=== PATIENT | female | born 1950 | race Caucasian/White ===

== ENCOUNTER 2021-01-01 15:23 | Inpatient (IN) ==
[2021-01-01 19:47] LABS: Basophils # 0.1 10*3/uL (0.0-0.2); Basophils % 0.7 % (0.0-0.8); Eosinophils % 0.2 % (0.00-10.9); Hematocrit 35.5 VOL% (35.7-47.0); Hemoglobin 11.8 GM/DL (12.0-16.0); Immature Granulocytes % 0.5 %; Immature Granulocytes Absolute 0.04 #; Lymphocytes # 1.3 10*3/uL (1.4-4.0); Lymphocytes % 15.4 % (21.3-54.2); Mean Corpuscular HGB Conc 33.2 GM/DL (32-36); Mean Corpuscular Volume 87.9 FL (87-102); Mean Platelet Volume 11.9 FL (9.6-12.0); Monocytes % 3.2 % (1.7-12.7); Platelet Count 210 T/CUMM (130-400); Red Blood Count 4.04 MC/CUMM (3.8-5.5); Red Cell Distribution Width 15.4 % (9.3-17.3); White Blood Count 8.7 T/CUMM (4-12)
[2021-01-01 19:57] LABS: INR 1.1; PT Patient Result 12.6 SECS (10.5-12.0); Partial Thromboplastin Time 28.8 SECS (23.9-33.8)
[2021-01-01 20:09] LABS: Albumin 2.6 G/DL (3.4-5.0); Bilirubin,Total 1.3 MG/DL (0.2-1.0); Calcium 9.5 MG/DL (8.5-10.1); Osmolality,Calculated 265.4 MOS/KG (273-304); Total Protein 7.9 G/DL (6.4-8.2)
[2021-01-01 20:43] LABS: Bacteria,Urine Occasional /HPF (Few); Bilirubin,Urine Negative (Negative); Blood, Urine Negative (Negative); Glucose,Urine (UA) Negative (Negative); Ketones,Urine 20 mg/dL (Negative); Mucus,Urine Occasional /LPF (Occasional); Nitrite,Urine Negative (Negative); Protein,Urine 100 MG/DL; RBC,Urine 1 /HPF (0-4); Squamous Epithelial Cell,Urine Occasional /HPF (0-10); Urine Appearance CLEAR (Clear); Urine Color Amber (Yellow); Urine Specific Gravity 1.021 (1.001-1.035)
[2021-01-01] MEDS ORDERED: AZITHROMYCIN INJ 500 MG in SODIUM CHLORIDE 0.9% 250 ML IV ONE (22:42)
[2021-01-01] MEDS ORDERED: ONDANSETRON 4 MG/2 ML VIAL IV PRN (23:27)
[2021-01-01] MEDS ORDERED: DOCUSATE SODIUM 100 MG CAPSULE PO PRN (23:27)
[2021-01-01] MEDS ORDERED: GLUCAGON 1 MG VIAL IM PRN (23:27)
[2021-01-01] MEDS ORDERED: ACETAMINOPHEN 325 MG TABLET PO PRN (23:27)
[2021-01-01] MEDS ORDERED: DEXTROSE 50% 25 GM/50 ML VIAL IV PRN (23:27)
[2021-01-01] MEDS: ASCORBIC ACID 500 MG TABLET PO SCH (23:37)
[2021-01-01] MEDS: FAMOTIDINE 20 MG TABLET PO SCH (23:37)
[2021-01-01] MEDS ORDERED: LOPERAMIDE 2 MG CAPSULE PO PRN (23:47)
[2021-01-01] MEDS ORDERED: MAGNESIUM SULF RIDER 2 GM/50 ML PREMIX IV PRN (23:49)
[2021-01-01] MEDS ORDERED: MAGNESIUM SULF RIDER 4 GM/100 ML PREMIX IV PRN (23:49)
[2021-01-02 00:33] LABS: ABG Base Excess -3.6 MMOL/L (-2.5-2.5); ABG HCO3 21.4 MMOL/L (20-26); ABG Oxygen Saturation 95.6 % (95-100); ABG PCO2 27.3 MM HG (35-48); ABG PH 7.454 (7.35-7.45); ABG PO2 76.1 MM HG (80-95); Allen Test Positive
[2021-01-02 05:34] LABS: Basophils % 0.6 % (0.0-0.8); Eosinophils # 0.1 10*3/uL (0.0-0.87); Eosinophils % 1.2 % (0.00-10.9); Hematocrit 34.6 VOL% (35.7-47.0); Hemoglobin 11.6 GM/DL (12.0-16.0); Immature Granulocytes % 0.6 %; Immature Granulocytes Absolute 0.04 #; Lymphocytes # 1.1 10*3/uL (1.4-4.0); Lymphocytes % 15.7 % (21.3-54.2); Mean Corpuscular HGB Conc 33.5 GM/DL (32-36); Mean Corpuscular Volume 88.7 FL (87-102); Mean Platelet Volume 12.3 FL (9.6-12.0); Monocytes % 2.8 % (1.7-12.7); Neutrophils % 79.1 % (38.7-73.9); Red Cell Distribution Width 15.6 % (9.3-17.3); White Blood Count 6.7 T/CUMM (4-12)
[2021-01-02 05:36] LABS: Platelet Count 158 T/CUMM (130-400)
[2021-01-02 05:44] LABS: INR 1.1; PT Patient Result 12.3 SECS (10.5-12.0)
[2021-01-02 06:04] LABS: Ferritin 980.6 ng/ml (8-252)
[2021-01-02 06:10] LABS: Albumin 2.2 G/DL (3.4-5.0); Bilirubin,Total 1.1 MG/DL (0.2-1.0); Calcium 9.2 MG/DL (8.5-10.1); Osmolality,Calculated 265.4 MOS/KG (273-304); Potassium 3.1 MMOL/L (3.5-5.1); Total Protein 7.2 G/DL (6.4-8.2)
[2021-01-02 06:16] LABS: Anisocytosis 1+; Platelet Estimate Normal
[2021-01-02] MEDS: DEXAMETHASONE 4 MG/1 ML VIAL IV SCH (08:30)
[2021-01-02] MEDS: CHOLECALCIFEROL 1,000 UNIT TABLET PO SCH (08:42)
[2021-01-02] MEDS: ASCORBIC ACID 500 MG TABLET PO SCH ×2 (08:42→21:05)
[2021-01-02] MEDS: FAMOTIDINE 20 MG TABLET PO SCH ×2 (08:42→21:05)
[2021-01-02] MEDS: CETIRIZINE 10 MG TABLET PO SCH (08:43)
[2021-01-02] MEDS: ZINC GLUCONATE 50 MG TABLET PO SCH (08:43)
[2021-01-02] MEDS ORDERED: AZITHROMYCIN 250 MG TABLET PO SCH (09:00)
[2021-01-02] MEDS: POTASSIUM CHLORIDE 20 MEQ TABLET PO PRN ×4 (09:02→18:44)
[2021-01-02] MEDS ORDERED: REMDESIVIR 200 MG in SODIUM CHLORIDE 0.9% 210 ML IV ONE (10:00)
[2021-01-03 05:14] LABS: Basophils % 0.4 % (0.0-0.8); Hematocrit 39.1 VOL% (35.7-47.0); Hemoglobin 12.9 GM/DL (12.0-16.0); Immature Granulocytes % 0.6 %; Immature Granulocytes Absolute 0.03 #; Lymphocytes % 18.4 % (21.3-54.2); Mean Corpuscular Volume 89.3 FL (87-102); Mean Platelet Volume 12.3 FL (9.6-12.0); Monocytes % 3.9 % (1.7-12.7); Neutrophils % 76.7 % (38.7-73.9); Platelet Count 137 T/CUMM (130-400); Red Blood Count 4.38 MC/CUMM (3.8-5.5); Red Cell Distribution Width 15.6 % (9.3-17.3); White Blood Count 5.2 T/CUMM (4-12)
[2021-01-03 05:46] LABS: Osmolality,Calculated 282.5 MOS/KG (273-304); Potassium 4.6 MMOL/L (3.5-5.1)
[2021-01-03 05:54] LABS: Platelet Estimate Adequate
[2021-01-03 05:55] LABS: Anisocytosis Slight
[2021-01-03 06:00] LABS: Albumin 2.4 G/DL (3.4-5.0); Bilirubin,Total 0.7 MG/DL (0.2-1.0); Calcium 10.1 MG/DL (8.5-10.1); Osmolality,Calculated 282.5 MOS/KG (273-304); Potassium 4.6 MMOL/L (3.5-5.1); Total Protein 7.8 G/DL (6.4-8.2)
[2021-01-03] MEDS: DEXAMETHASONE 4 MG/1 ML VIAL IV SCH (08:05)
[2021-01-03] MEDS: FAMOTIDINE 20 MG TABLET PO SCH ×2 (08:08→20:13)
[2021-01-03] MEDS: ASCORBIC ACID 500 MG TABLET PO SCH ×2 (08:08→20:13)
[2021-01-03] MEDS: ZINC GLUCONATE 50 MG TABLET PO SCH (08:09)
[2021-01-03] MEDS: CHOLECALCIFEROL 1,000 UNIT TABLET PO SCH (08:09)
[2021-01-03] MEDS: CETIRIZINE 10 MG TABLET PO SCH (08:09)
[2021-01-03] MEDS: REMDESIVIR 100 MG in SODIUM CHLORIDE 0.9% 100 ML IV SCH (09:43)
[2021-01-04 05:07] LABS: Basophils % 0.3 % (0.0-0.8); Eosinophils % 0.1 % (0.00-10.9); Hematocrit 36.9 VOL% (35.7-47.0); Hemoglobin 12.5 GM/DL (12.0-16.0); Immature Granulocytes % 0.4 %; Immature Granulocytes Absolute 0.04 #; Lymphocytes # 1.1 10*3/uL (1.4-4.0); Mean Corpuscular HGB Conc 33.9 GM/DL (32-36); Mean Corpuscular Volume 86.8 FL (87-102); Mean Platelet Volume 12.2 FL (9.6-12.0); Monocytes % 4.9 % (1.7-12.7); Neutrophils % 82.3 % (38.7-73.9); Platelet Count 215 T/CUMM (130-400); Red Blood Count 4.25 MC/CUMM (3.8-5.5); Red Cell Distribution Width 15.3 % (9.3-17.3); White Blood Count 9.2 T/CUMM (4-12)
[2021-01-04 05:24] LABS: Calcium 9.9 MG/DL (8.5-10.1); Potassium 4.2 MMOL/L (3.5-5.1)
[2021-01-04 05:40] LABS: Lymphocytes 11 % (20-55); Platelet Estimate Normal; Segmented Neutrophils 86 % (50-85); Total Cells Counted 100
[2021-01-04] MEDS: ZINC GLUCONATE 50 MG TABLET PO SCH (08:17)
[2021-01-04] MEDS: FAMOTIDINE 20 MG TABLET PO SCH ×2 (08:18→20:35)
[2021-01-04] MEDS: CETIRIZINE 10 MG TABLET PO SCH (08:18)
[2021-01-04] MEDS: ASCORBIC ACID 500 MG TABLET PO SCH ×2 (08:18→20:35)
[2021-01-04] MEDS: CHOLECALCIFEROL 1,000 UNIT TABLET PO SCH (08:18)
[2021-01-04] MEDS: DEXAMETHASONE 4 MG/1 ML VIAL IV SCH (08:18)
[2021-01-04] MEDS: REMDESIVIR 100 MG in SODIUM CHLORIDE 0.9% 100 ML IV SCH (08:38)
[2021-01-04] MEDS: INSULIN LISPRO 100 UNIT/ML SUBCUT SCH ×2 (16:50→20:34)
[2021-01-04] MEDS: MELATONIN 3 MG TABLET PO PRN (20:35)
[2021-01-05 05:05] LABS: Basophils % 0.3 % (0.0-0.8); Eosinophils % 0.1 % (0.00-10.9); Hematocrit 35.2 VOL% (35.7-47.0); Immature Granulocytes % 0.5 %; Immature Granulocytes Absolute 0.04 #; Lymphocytes # 1.3 10*3/uL (1.4-4.0); Lymphocytes % 16.2 % (21.3-54.2); Mean Corpuscular HGB Conc 34.1 GM/DL (32-36); Mean Corpuscular Volume 87.3 FL (87-102); Mean Platelet Volume 12.2 FL (9.6-12.0); Monocytes % 6.2 % (1.7-12.7); Neutrophils % 76.7 % (38.7-73.9); Platelet Count 262 T/CUMM (130-400); Red Blood Count 4.03 MC/CUMM (3.8-5.5); Red Cell Distribution Width 15.3 % (9.3-17.3); White Blood Count 7.9 T/CUMM (4-12)
[2021-01-05 05:34] LABS: Albumin 2.1 G/DL (3.4-5.0); Calcium 9.5 MG/DL (8.5-10.1); Ferritin 665.9 ng/ml (8-252); Osmolality,Calculated 279.5 MOS/KG (273-304); Potassium 3.5 MMOL/L (3.5-5.1); Total Protein 6.5 G/DL (6.4-8.2)
[2021-01-05] MEDS ORDERED: VALSARTAN 80 MG TABLET PO SCH (09:00)
[2021-01-05] MEDS: INSULIN LISPRO 100 UNIT/ML SUBCUT SCH ×4 (09:11→20:13)
[2021-01-05] MEDS: ASPIRIN EC 81 MG TABLET PO SCH (09:13)
[2021-01-05] MEDS: DULoxetine 30 MG CAPSULE PO SCH (09:13)
[2021-01-05] MEDS: DEXAMETHASONE 4 MG/1 ML VIAL IV SCH (09:14)
[2021-01-05] MEDS: FUROSEMIDE 40 MG TABLET PO SCH (09:19)
[2021-01-05] MEDS: levETIRAcetam 500 MG TABLET PO SCH ×2 (09:19→20:13)
[2021-01-05] MEDS: METOPROLOL TARTRATE 25 MG TABLET PO SCH (09:19)
[2021-01-05] MEDS: FERROUS SULFATE 325 MG TABLET PO SCH (09:19)
[2021-01-05] MEDS: allopurinoL 300 MG TABLET PO SCH (09:20)
[2021-01-05] MEDS: CETIRIZINE 10 MG TABLET PO SCH (09:20)
[2021-01-05] MEDS: CHOLECALCIFEROL 1,000 UNIT TABLET PO SCH (09:20)
[2021-01-05] MEDS: ASCORBIC ACID 500 MG TABLET PO SCH ×2 (09:20→20:12)
[2021-01-05] MEDS: ZINC GLUCONATE 50 MG TABLET PO SCH (09:20)
[2021-01-05] MEDS: FAMOTIDINE 20 MG TABLET PO SCH ×2 (09:20→20:12)
[2021-01-05] MEDS: PREGABALIN 75 MG CAPSULE PO SCH ×2 (09:20→20:12)
[2021-01-05] MEDS: POTASSIUM CHLORIDE 8 MEQ CAPSULE PO SCH ×2 (09:47→20:13)
[2021-01-05] MEDS: REMDESIVIR 100 MG in SODIUM CHLORIDE 0.9% 100 ML IV SCH (10:07)
[2021-01-05] MEDS: MELATONIN 3 MG TABLET PO PRN (20:12)
[2021-01-05] MEDS: SIMVASTATIN 10 MG TABLET PO SCH (20:12)
[2021-01-06 04:30] LABS: Basophils % 0.3 % (0.0-0.8); Eosinophils # 0.1 10*3/uL (0.0-0.87); Eosinophils % 1.3 % (0.00-10.9); Hematocrit 37.1 VOL% (35.7-47.0); Hemoglobin 12.1 GM/DL (12.0-16.0); Immature Granulocytes % 0.6 %; Immature Granulocytes Absolute 0.04 #; Lymphocytes # 1.8 10*3/uL (1.4-4.0); Lymphocytes % 26.3 % (21.3-54.2); Mean Corpuscular HGB Conc 32.6 GM/DL (32-36); Mean Corpuscular Volume 88.3 FL (87-102); Monocytes % 8.2 % (1.7-12.7); Neutrophils % 63.3 % (38.7-73.9); Platelet Count 287 T/CUMM (130-400); Red Cell Distribution Width 15.6 % (9.3-17.3); White Blood Count 6.8 T/CUMM (4-12)
[2021-01-06 04:52] LABS: Ferritin 620.3 ng/ml (8-252)
[2021-01-06 04:56] LABS: Band Neutrophils 1 % (0-10); Eosinophils 1 % (0-10); Hypochromasia 1+; Lymphocytes 20 % (20-55); Microcytosis Slight; Platelet Estimate Normal; Segmented Neutrophils 70 % (50-85); Total Cells Counted 100
[2021-01-06] MEDS: INSULIN LISPRO 100 UNIT/ML SUBCUT SCH ×2 (07:24→11:40)
[2021-01-06] MEDS: POTASSIUM CHLORIDE 8 MEQ CAPSULE PO SCH ×2 (09:18→20:12)
[2021-01-06] MEDS: FUROSEMIDE 40 MG TABLET PO SCH (09:18)
[2021-01-06] MEDS: levETIRAcetam 500 MG TABLET PO SCH ×2 (09:18→20:12)
[2021-01-06] MEDS: CETIRIZINE 10 MG TABLET PO SCH (09:18)
[2021-01-06] MEDS: FERROUS SULFATE 325 MG TABLET PO SCH (09:18)
[2021-01-06] MEDS: DEXAMETHASONE 4 MG/1 ML VIAL IV SCH (09:18)
[2021-01-06] MEDS: allopurinoL 300 MG TABLET PO SCH (09:18)
[2021-01-06] MEDS: ASPIRIN EC 81 MG TABLET PO SCH (09:18)
[2021-01-06] MEDS: METOPROLOL TARTRATE 25 MG TABLET PO SCH (09:18)
[2021-01-06] MEDS: OLMESARTAN 20 MG TABLET PO SCH (09:18)
[2021-01-06] MEDS: PREGABALIN 75 MG CAPSULE PO SCH ×2 (09:18→20:12)
[2021-01-06] MEDS: CHOLECALCIFEROL 1,000 UNIT TABLET PO SCH (09:18)
[2021-01-06] MEDS: ASCORBIC ACID 500 MG TABLET PO SCH ×2 (09:18→20:12)
[2021-01-06] MEDS: DULoxetine 30 MG CAPSULE PO SCH (09:18)
[2021-01-06] MEDS: ZINC GLUCONATE 50 MG TABLET PO SCH (09:18)
[2021-01-06] MEDS: FAMOTIDINE 20 MG TABLET PO SCH ×2 (09:18→20:12)
[2021-01-06] MEDS: REMDESIVIR 100 MG in SODIUM CHLORIDE 0.9% 100 ML IV SCH (09:45)
[2021-01-06] MEDS: SIMVASTATIN 10 MG TABLET PO SCH (20:12)
[2021-01-06] MEDS: MELATONIN 3 MG TABLET PO PRN (20:12)
[2021-01-07 06:12] LABS: Basophils # 0.1 10*3/uL (0.0-0.2); Basophils % 0.6 % (0.0-0.8); Eosinophils # 0.2 10*3/uL (0.0-0.87); Eosinophils % 2.2 % (0.00-10.9); Hematocrit 39.9 VOL% (35.7-47.0); Hemoglobin 12.8 GM/DL (12.0-16.0); Immature Granulocytes % 1.2 %; Lymphocytes # 2.2 10*3/uL (1.4-4.0); Lymphocytes % 25.8 % (21.3-54.2); Mean Corpuscular HGB Conc 32.1 GM/DL (32-36); Mean Corpuscular Volume 89.9 FL (87-102); Mean Platelet Volume 11.3 FL (9.6-12.0); Monocytes % 8.9 % (1.7-12.7); Neutrophils % 61.3 % (38.7-73.9); Platelet Count 296 T/CUMM (130-400); Red Blood Count 4.44 MC/CUMM (3.8-5.5); Red Cell Distribution Width 15.9 % (9.3-17.3); White Blood Count 8.4 T/CUMM (4-12)
[2021-01-07 06:37] LABS: Hypochromasia 1+
[2021-01-07 06:38] LABS: Microcytosis 1+; Platelet Estimate Normal
[2021-01-07] MEDS: levETIRAcetam 500 MG TABLET PO SCH ×2 (08:03→21:00)
[2021-01-07] MEDS: OLMESARTAN 20 MG TABLET PO SCH (08:03)
[2021-01-07] MEDS: METOPROLOL TARTRATE 25 MG TABLET PO SCH (08:03)
[2021-01-07] MEDS: allopurinoL 300 MG TABLET PO SCH (08:03)
[2021-01-07] MEDS: FUROSEMIDE 40 MG TABLET PO SCH (08:03)
[2021-01-07] MEDS: ASCORBIC ACID 500 MG TABLET PO SCH ×2 (08:04→21:00)
[2021-01-07] MEDS: PREGABALIN 75 MG CAPSULE PO SCH ×2 (08:04→21:00)
[2021-01-07] MEDS: DULoxetine 30 MG CAPSULE PO SCH (08:04)
[2021-01-07] MEDS: FAMOTIDINE 20 MG TABLET PO SCH ×2 (08:04→21:00)
[2021-01-07] MEDS: CHOLECALCIFEROL 1,000 UNIT TABLET PO SCH (08:04)
[2021-01-07] MEDS: ASPIRIN EC 81 MG TABLET PO SCH (08:04)
[2021-01-07] MEDS: ZINC GLUCONATE 50 MG TABLET PO SCH (08:04)
[2021-01-07] MEDS: FERROUS SULFATE 325 MG TABLET PO SCH (08:04)
[2021-01-07] MEDS: POTASSIUM CHLORIDE 8 MEQ CAPSULE PO SCH ×2 (08:05→21:00)
[2021-01-07] MEDS: CETIRIZINE 10 MG TABLET PO SCH (08:05)
[2021-01-07] MEDS: DEXAMETHASONE 4 MG/1 ML VIAL IV SCH (08:33)
[2021-01-07] MEDS: SIMVASTATIN 10 MG TABLET PO SCH (21:00)
[2021-01-08 04:55] VITALS: BP 121/70
[2021-01-08] MEDS: OLMESARTAN 20 MG TABLET PO SCH (08:02)
[2021-01-08] MEDS: DEXAMETHASONE 4 MG/1 ML VIAL IV SCH (08:02)
[2021-01-08] MEDS: levETIRAcetam 500 MG TABLET PO SCH (08:03)
[2021-01-08] MEDS: ASCORBIC ACID 500 MG TABLET PO SCH (08:03)
[2021-01-08] MEDS: FERROUS SULFATE 325 MG TABLET PO SCH (08:03)
[2021-01-08] MEDS: POTASSIUM CHLORIDE 8 MEQ CAPSULE PO SCH (08:03)
[2021-01-08] MEDS: DULoxetine 30 MG CAPSULE PO SCH (08:03)
[2021-01-08] MEDS: CETIRIZINE 10 MG TABLET PO SCH (08:03)
[2021-01-08] MEDS: FUROSEMIDE 40 MG TABLET PO SCH (08:03)
[2021-01-08] MEDS: CHOLECALCIFEROL 1,000 UNIT TABLET PO SCH (08:03)
[2021-01-08] MEDS: ASPIRIN EC 81 MG TABLET PO SCH (08:03)
[2021-01-08] MEDS: ZINC GLUCONATE 50 MG TABLET PO SCH (08:03)
[2021-01-08] MEDS: METOPROLOL TARTRATE 25 MG TABLET PO SCH (08:04)
[2021-01-08] MEDS: PREGABALIN 75 MG CAPSULE PO SCH (08:04)
[2021-01-08] MEDS: FAMOTIDINE 20 MG TABLET PO SCH (08:04)
[2021-01-08] MEDS: allopurinoL 300 MG TABLET PO SCH (08:04)
== END 2021-01-08 13:15 | disposition swing bed (61) | DRG 177 ==
LOC: N.ED 15:23 → N.EDINP 21:35 → SUATTDRO 21:35 → N.CC 22:20
PROVIDERS: ADMIT Internal Medicine; ATTEND Internal Medicine

== ENCOUNTER 2022-09-29 20:00 | Inpatient (IN) ==
[2022-09-29] MEDS ORDERED: SODIUM CHLORIDE 0.9% 500 ML IV STA (21:11)
[2022-09-29 21:14] LABS: Basophils # 0.1 10*3/uL (0.0-0.2); Basophils % 0.8 % (0.0-0.8); Eosinophils # 0.2 10*3/uL (0.0-0.87); Eosinophils % 1.5 % (0.00-10.9); Hematocrit 44.2 VOL% (35.7-47.0); Hemoglobin 14.2 GM/DL (12.0-16.0); Immature Granulocytes % 0.6 %; Lymphocytes # 2.4 10*3/uL (1.4-4.0); Lymphocytes % 15.5 % (21.3-54.2); Mean Corpuscular HGB Conc 32.1 GM/DL (32-36); Mean Corpuscular Volume 91.9 FL (87-102); Mean Platelet Volume 12.1 FL (9.6-12.0); Monocytes # 1.4 10*3/uL (0.11-0.8); Monocytes % 9.1 % (1.7-12.7); Neutrophils % 72.5 % (38.7-73.9); Platelet Count 252 T/CUMM (130-400); Red Blood Count 4.81 MC/CUMM (3.8-5.5); Red Cell Distribution Width 14.2 % (9.3-17.3); White Blood Count 15.64 T/CUMM (4-12)
[2022-09-29 21:28] LABS: Albumin 3.6 G/DL (3.4-5.0); Bilirubin,Total 1.1 MG/DL (0.20-1.00); Calcium 10.2 MG/DL (8.5-10.1); Osmolality,Calculated 285.3 MOS/KG (273-304); Potassium 2.6 MMOL/L (3.5-5.1); Total Protein 7.8 G/DL (6.4-8.2)
[2022-09-29 21:40] LABS: Salicylate < 2.8 MG/DL (2.8-20)
[2022-09-29 21:42] LABS: Acetaminophen < 2.0 UG/ML (10-30)
[2022-09-29] MEDS ORDERED: POTASSIUM CHLORIDE RIDER 20 MEQ/100 ML PREMIX IV STA (21:44)
[2022-09-29 21:50] LABS: CKMB % 3.82 %
[2022-09-29] MEDS ORDERED: hydrALAZINE 20 MG/1 ML VIAL IV STA (22:03)
[2022-09-29] MEDS: POTASSIUM CHLORIDE RIDER 10 MEQ/100 ML PREMIX IV SCH (22:08)
[2022-09-29 22:49] LABS: Bacteria,Urine Moderate /HPF (Few); Bilirubin,Urine Moderate mg/dL (Negative); Blood, Urine Trace mg/dL (Negative); Glucose,Urine (UA) Negative (Negative); Hyaline Casts,Urine 8 /LPF (0-3); Ketones,Urine 15 mg/dL (Negative); Mucus,Urine Many /LPF (Occasional); Nitrite,Urine Negative (Negative); Protein,Urine 100 mg/dL (Negative); RBC,Urine 2 /HPF (0-4); Squamous Epithelial Cell,Urine Occasional /HPF (0-10); Urine Appearance Clear (Clear); Urine Color Yellow (Yellow); Urine Specific Gravity 1.025 (1.001-1.035); Urine pH 5.5 (4.5-8.0)
[2022-09-29 23:09] LABS: Barbiturates Screen,Urine Negative (Negative); Benzodiazepines Screen,Urine Negative (Negative); Cannabinoid Screen,Urine Negative (Negative); Opiate Screen,Urine Negative (Negative); Phencyclidine Screen,Urine Negative (Negative)
[2022-09-30] MEDS ORDERED: guaiFENesin/DM ER 600-30 MG TABLET PO PRN (00:01)
[2022-09-30] MEDS ORDERED: ZALEPLON 5 MG CAPSULE PO PRN (00:01)
[2022-09-30] MEDS ORDERED: diphenhydrAMINE CAP 25 MG CAPSULE PO PRN (00:01)
[2022-09-30] MEDS ORDERED: hydrALAZINE 20 MG/1 ML VIAL IV PRN (00:01)
[2022-09-30] MEDS ORDERED: NICOTINE 21 MG/24 HR PATCH TRANSDERM PRN (00:01)
[2022-09-30] MEDS ORDERED: ACETAMINOPHEN 325 MG TABLET PO PRN (00:01)
[2022-09-30] MEDS ORDERED: ONDANSETRON 4 MG/2 ML VIAL IV PRN (00:01)
[2022-09-30] MEDS ORDERED: SODIUM CHLORIDE 0.9% 1,000 ML IV SCH (00:30)
[2022-09-30 05:31] LABS: Basophils # 0.1 10*3/uL (0.0-0.2); Basophils % 0.9 % (0.0-0.8); Eosinophils # 0.4 10*3/uL (0.0-0.87); Eosinophils % 3.4 % (0.00-10.9); Hematocrit 39.5 VOL% (35.7-47.0); Hemoglobin 13.1 GM/DL (12.0-16.0); Immature Granulocytes % 0.6 %; Immature Granulocytes Absolute 0.07 #; Lymphocytes # 2.4 10*3/uL (1.4-4.0); Lymphocytes % 18.9 % (21.3-54.2); Mean Corpuscular HGB Conc 33.2 GM/DL (32-36); Mean Platelet Volume 12.6 FL (9.6-12.0); Monocytes # 1.3 10*3/uL (0.11-0.8); Monocytes % 10.6 % (1.7-12.7); Neutrophils % 65.6 % (38.7-73.9); Platelet Count 234 T/CUMM (130-400); Red Blood Count 4.34 MC/CUMM (3.8-5.5); Red Cell Distribution Width 14.1 % (9.3-17.3); White Blood Count 12.67 T/CUMM (4-12)
[2022-09-30 05:50] LABS: Calcium 9.7 MG/DL (8.5-10.1); Osmolality,Calculated 286.1 MOS/KG (273-304)
[2022-09-30 05:51] LABS: Potassium 2.3 MMOL/L (3.5-5.1)
[2022-09-30] MEDS: POTASSIUM CHLORIDE RIDER 10 MEQ/100 ML PREMIX IV SCH ×4 (08:00→10:01)
[2022-09-30] MEDS: FERROUS SULFATE 325 MG TABLET PO SCH (08:58)
[2022-09-30] MEDS: PANTOPRAZOLE 40 MG TABLET PO SCH (08:58)
[2022-09-30] MEDS: POTASSIUM CHLORIDE 20 MEQ TABLET PO SCH ×2 (08:58→20:19)
[2022-09-30] MEDS: CETIRIZINE 10 MG TABLET PO SCH (08:58)
[2022-09-30] MEDS: BISACODYL 5 MG TABLET PO SCH (08:58)
[2022-09-30] MEDS ORDERED: FUROSEMIDE 20 MG TABLET PO SCH (09:00)
[2022-09-30] MEDS ORDERED: SODIUM CHLOR 0.9% KCL 20 MEQ 20 MEQ/1,000 ML BAG IV SCH (09:30)
[2022-09-30] MEDS: POTASSIUM CHLORIDE 20 MEQ TABLET PO PRN ×2 (11:53→13:33)
[2022-10-01] MEDS: OLMESARTAN 5 MG TABLET PO SCH (09:48)
[2022-10-01] MEDS: FERROUS SULFATE 325 MG TABLET PO SCH (09:48)
[2022-10-01] MEDS: METOPROLOL TARTRATE 25 MG TABLET PO SCH (09:49)
[2022-10-01] MEDS: PANTOPRAZOLE 40 MG TABLET PO SCH (09:49)
[2022-10-01] MEDS: levETIRAcetam 500 MG TABLET PO SCH ×2 (09:49→21:03)
[2022-10-01] MEDS: CETIRIZINE 10 MG TABLET PO SCH (09:49)
[2022-10-01] MEDS: POTASSIUM CHLORIDE 20 MEQ TABLET PO SCH ×2 (09:49→21:02)
[2022-10-01] MEDS: BISACODYL 5 MG TABLET PO SCH (09:50)
[2022-10-01 10:09] LABS: Basophils # 0.2 10*3/uL (0.0-0.2); Basophils % 1.6 % (0.0-0.8); Eosinophils # 0.6 10*3/uL (0.0-0.87); Eosinophils % 6.5 % (0.00-10.9); Hematocrit 37.6 VOL% (35.7-47.0); Immature Granulocytes % 0.6 %; Immature Granulocytes Absolute 0.06 #; Lymphocytes % 21.5 % (21.3-54.2); Mean Corpuscular HGB Conc 31.9 GM/DL (32-36); Mean Corpuscular Volume 93.3 FL (87-102); Mean Platelet Volume 11.8 FL (9.6-12.0); Monocytes # 0.9 10*3/uL (0.11-0.8); Monocytes % 9.3 % (1.7-12.7); Neutrophils % 60.5 % (38.7-73.9); Platelet Count 225 T/CUMM (130-400); Red Blood Count 4.03 MC/CUMM (3.8-5.5); Red Cell Distribution Width 14.5 % (9.3-17.3)
[2022-10-01 10:22] LABS: Osmolality,Calculated 290.8 MOS/KG (273-304); Potassium 3.3 MMOL/L (3.5-5.1)
[2022-10-01] MEDS ORDERED: MAGNESIUM SULF RIDER 2 GM/50 ML PREMIX IV ONE (12:47)
[2022-10-01] MEDS: SODIUM CHLOR 0.45% KCL 20 MEQ 20 MEQ/1,000 ML BAG IV SCH ×2 (13:57→21:04)
[2022-10-01] MEDS ORDERED: SIMVASTATIN 10 MG TABLET PO SCH (21:00)
[2022-10-02] MEDS: SODIUM CHLOR 0.45% KCL 20 MEQ 20 MEQ/1,000 ML BAG IV SCH (01:01)
[2022-10-02 04:32] LABS: Calcium 8.8 MG/DL (8.5-10.1); Osmolality,Calculated 289.7 MOS/KG (273-304); Potassium 3.9 MMOL/L (3.5-5.1)
[2022-10-02 08:03] VITALS: BP 170/90
[2022-10-02] MEDS: OLMESARTAN 5 MG TABLET PO SCH (08:39)
[2022-10-02] MEDS: METOPROLOL TARTRATE 25 MG TABLET PO SCH (08:40)
[2022-10-02] MEDS: POTASSIUM CHLORIDE 20 MEQ TABLET PO SCH (08:40)
[2022-10-02] MEDS: FERROUS SULFATE 325 MG TABLET PO SCH (08:40)
[2022-10-02] MEDS: PANTOPRAZOLE 40 MG TABLET PO SCH (08:40)
[2022-10-02] MEDS: levETIRAcetam 500 MG TABLET PO SCH (08:40)
[2022-10-02] MEDS: BISACODYL 5 MG TABLET PO SCH (11:22)
[2022-10-02] MEDS: CETIRIZINE 10 MG TABLET PO SCH (11:22)
== END 2022-10-02 11:39 | disposition home or self-care (01) | DRG 392 ==
LOC: N.ED 20:00 → N.EDINP 20:00 → N.2W 09-30 01:22 → SUATTDRO 09-30 09:21 → N.TELEN 09-30 16:19
PROVIDERS: ADMIT Internal Medicine; ATTEND Internal Medicine